=== PATIENT | female | born 1985 | race Two or more races ===

== ENCOUNTER 2021-05-28 21:46 | Emergency (ER) | payer SELFPAY ==
--- NOTE | 2021-05-28 22:30 | CR ---
INDICATION: Cough, shortness of breath TECHNIQUE: Chest radiograph 1 view COMPARISON: None FINDINGS: The sensitivity and specificity of the exam are moderately limited by the patient`s body habitus. Mediastinum: The mediastinum is normal in appearance. The heart silhouette is normal in size and morphology. Lung: Small lung volumes are present with mild bibasilar ground-glass opacities noted. No sign of pleural effusion seen. No pneumothorax is identified. Bone and Soft tissue: Unremarkable for age. IMPRESSION: 1. Small lung volumes are present with mild bibasilar ground-glass opacities noted. Dictated by Jah Byrne MD @ 05/28/2021 10:29:48 PM Dictated by: Jah Byrne MD @ 05/28/2021 22:29:51 (Electronically Signed)
[2021-05-28 22:48] LABS: CORONAVIRUS COVID-19 NAA POSITIVE (NEGATIVE); INFLUENZA A NAA NEGATIVE (NEGATIVE); INFLUENZA B NAA NEGATIVE (NEGATIVE)
--- NOTE | 2021-05-28 23:09 | EDM.PDOC ---
ED HPI GENERAL MEDICAL PROBLEM - General Chief Complaint: Respiratory Problem Stated Complaint: DIFIICULTY BREATHING FOR 3 DAYS Time Seen by Provider: 05/28/21 22:27 - History of Present Illness INITIAL COMMENTS - FREE TEXT/NARRATIVE: CHIEF COMPLAINT(S): Cough HISTORY OF PRESENT ILLNESS: This is a 36-year-old without any significant past medical history who comes to the emergency department with a chief complaint of cough. The patient states that for the last 3 days she has been experiencing cough which is productive of clear sputum. She states that she does feel short of breath. In addition she did have one episode of coughing where she had vomiting with some streaks of blood in it. She denies any hemoptysis. She states that she does have some chest pain when she coughs but does not have any chest pain otherwise. She denies any fevers, chills, lower extremity edema, sick contacts. She denies any sore throat or runny nose. She denies any history of CAD or CHF. She denies any recent travel or recent surgery or prior history of DVT or PE. She currently rates her pain a 0 out of 10. The patient states that she has not tried anything at home. REVIEW OF SYSTEMS: Constitutional: Denies fever, chills. Eyes: Denies eye pain Ears, Nose, Mouth, & Throat: Denies earache Cardiovascular: Positive for posttussive chest wall pain denies chest pain Respiratory: Positive for productive cough and shortness of breath Gastrointestinal: Denies Nausea, vomiting, diarrhea, hematochezia. Genitourinary: Denies hematuria Skin:Denies a rash MSK: Denies joint pain Neurological: Denies blurred vision Psychiatric: Denies depression PAST MEDICAL HISTORY: As per history of present illness and as reviewed below otherwise noncontributory. SURGICAL HISTORY: As per history of present illness and as reviewed below otherwise noncontributory. SOCIAL HISTORY: As per history of present illness and as reviewed below otherwise noncontributory. FAMILY HISTORY: As per history of present illness and as reviewed below otherwise noncontributory. EXAMINATION OF ORGAN SYSTEMS/BODY AREAS: Constitutional: Blood pressure is 140/93, heart rate 79, respiratory rate 20 with an oxygen saturation 100% on room air. Temperature 36.1 General: Well-appearing woman who is in no acute distress Psychiatric: Appropriate mood and affect. Eyes: No scleral icterus or conjunctival erythema ENMT: Moist mucous membranes. No pharyngeal erythema Cardiovascular: Regular, rate, and rhythm. No gallops, murmurs, or rubs. Bilateral upper extremity pulses symmetric and intact. No peripheral edema. No JVD. Respiratory: Lungs clear to auscultation bilaterally. No wheezes, rales, or rhonchi. Gastrointestinal: Soft, non-tender, non-distended. Normoactive bowel sounds Genitourinary: No suprapubic tenderness Musculoskeletal: Normal range of motion. Skin: No lesions or abrasions. Neurological: Alert, GCS 15 MEDICAL DECISION MAKING AND COURSE IN THE ED WITH INTERPRETATION/REVIEW OF DIAGNOSTIC STUDIES: This is a 36-year-old woman without any significant past medical history who comes to the emergency department with 3 days of cough which is productive and post tussive chest pain who has normal vital signs. At this time will obtain Covid and influenza swab. Also obtain a chest x-ray. I do not believe any other labs or imaging are indicated as indicated by the patient's normal vital signs. She was amenable to this plan DDx: COVID-19, influenza, bacterial pneumonia Laboratory: COVID is positive. Influenza negative. The radiological images were viewed by myself along with reading the report from the radiologist. Chest x-ray reveals mild bibasilar groundglass opacities. On reevaluation I did discuss results with the patient. At this time I did discuss with her that she does not fact have COVID-19. She is a candidate for monoclonal antibody at this time. I did discuss strict return precautions with the patient she was amenable to discharge and had no further questions DISPOSITION: The patient was discharged home in stable condition. The patient will follow up with PCP after her isolation. CONDITION: Fair PROCEDURES: None FINAL IMPRESSION(S)/DIAGNOSES: 1. Acute COVID-19 pneumonia Terrance Augustine M.D. - Related Data Allergies Allergy/AdvReac Type Severity Reaction Status Date / Time No Known Allergies Allergy Verified 05/28/21 21:56 Home Meds: Home Meds . [No Known Home Meds] 05/28/21 [History] Social & Family History - Tobacco Use Second Hand Smoke Exposure: No - Caffeine Use Caffeine Use: Reports: None - Recreational Drug Use Recreational Drug Use: No ED ROS GENERAL - Review of Systems Review Of Systems: See Below ED EXAM, GENERAL - Physical Exam Exam: See Below Course - Vital Signs Last Recorded V/S: Last Vital Signs Temp 36.1 C 05/28/21 21:54 Pulse 86 05/28/21 23:25 Resp 18 05/28/21 23:25 BP 139/100 H 05/28/21 23:25 Pulse Ox 96 05/28/21 23:25 - Orders/Labs/Meds Labs: Laboratory Tests 05/28/21 Range/Units 22:00 Influenza Type A RNA NEGATIVE (NEGATIVE) Influenza Type B RNA NEGATIVE (NEGATIVE) SARS-CoV-2 RNA (EWELINA) POSITIVE H (NEGATIVE) Departure - Departure Time of Disposition: 23:08 Disposition: Home, Self-Care 01 Condition: Fair Clinical Impression: COVID-19 - Discharge Information *PRESCRIPTION DRUG MONITORING PROGRAM REVIEWED*: No *COPY OF PRESCRIPTION DRUG MONITORING REPORT IN PATIENT YIFAN: No Instructions: 10 Things You Can Do to Manage Your COVID-19 Symptoms at Home - [facility] (12/05/2020), COVID-19: How to Protect Yourself and Others - CDC, Symptoms of COVID-19 - [facility] (07/14/2020) Referrals: PCP,None [Primary Care Provider] - Forms: ED Department Discharge Additional Instructions: You were evaluated today on an emergent basis. At this time you are diagnosed with COVID-19. I did provide you with information on the monoclonal antibody infusion. At this time you stated that you did not want this infusion. If in the future you do want it within the next 7 days please contact primary care physician in order to set you up for possible outpatient IV infusion. You should take acetaminophen 500-1000 mg every 6 hours as needed for fever and muscle aches. Please drink plenty of fluids and get plenty of rest over the next several days. We would recommend that you get a pulse oximeter from the pharmacy to keep an eye on your oxygen level. If your oxygen level drops below 91%, you should return to the ED for evaluation. You should return to the ER sooner if you start having any symptoms of shortness of breath or any other new or concerning symptoms. 1. Your COVID-19 screening is positive. That means you do have the coronavirus and you are considered contagious. Your vital signs and oxygen saturation are well enough that you were able to monitor your symptoms at home. Continue to monitor for trouble breathing, new confusion or inability to arouse, bluish lips or face or any of the other symptoms we discussed -if this occurs please return to the emergency room. 2. Please self quarantine over the next 5 days. Then wear mask if your symptoms are improving for an additional 5 days Inform any persons that you have been in contact with since you started becoming symptomatic that you have tested positive; they should be made aware and take the appropriate steps as needed. 3. May alternate Tylenol and ibuprofen as needed for pain and fever management. 4. The [facility] department will be calling you and following up with you. The [employer] Hotline phone number , They are open Tuesday - Tuesday 7am - 7pm. Follow up with your primary care provider for re-evaluation and re-testing after the 10 day quarantine and discuss when you should be seen. [facility] - [facility] [address] [place] [id number] [place] [address] The patient is informed of any results of their evaluation and diagnostic workup and all questions are answered. They are given discharge instructions and return precautions. The patient is stable for discharge. The patient states they understand and agree with the plan and that they will return if their symptoms get worse or if they have any new concerns. The following information is given to patients seen in the emergency department who are being discharged to home. This information is to outline your options for follow-up care. We provide all patients seen in our emergency department with a follow-up referral. The need for follow-up, as well as the timing and circumstances, are variable depending upon the specifics of your emergency department visit. If you don't have a primary care physician on staff, we will provide you with a referral. We always advise you to contact your personal physician following an emergency department visit to inform them of the circumstance of the visit and for follow-up with them and/or the need for any referrals to a consulting specialist. The emergency department will also refer you to a specialist when appropriate. This referral assures that you have the opportunity for follow-up care with a specialist. All of these measure are taken in an effort to provide you with optimal care, which includes your follow-up. Under all circumstances we always encourage you to contact your private physician who remains a resource for coordinating your care. When calling for follow-up care, please make the office aware that this follow-up is from your recent emergency room visit. If for any reason you are refused follow-up, please contact the [facility] Emergency Department at and asked to speak to the emergency department charge nurse. Sepsis Event Note (ED) - Evaluation Sepsis Screening Result: No Definite Risk
== END 2021-05-28 23:25 | disposition home or self-care (01) ==
LOC: MW.ED 21:46
DX: U07.1 COVID-19 (principal); J12.82 Pneumonia due to coronavirus disease 2019
CPT/HCPCS: 0240U; 71045; 99285